=== PATIENT | female | born 1990 | race African-American/Black ===

== ENCOUNTER 2017-04-15 15:05 | Emergency (ER) | payer OTHER ==
[~2017-04-15] VITALS: Ht 157.5 cm; Wt 81.6 kg
--- NOTE | 2017-04-15 15:52 | Emergency Room Report ---
History of Present Illness General Chief Complaint: Abdominal Pain Source: Patient Present Illness HPI 26-year-old female presents emergency department complaining of lower abdominal cramping in addition to new onset vaginal bleeding since this a.m. Patient states she is approximately 10 weeks and she has ultrasound scheduled with her NETWORK DEVELOPMENT COORDINATOR on the . Patient is with one prior vaginal and one prior . Patient states her pain is ranges form 5/10 in severity up to 8/10 in severity, she reports dark red blood, approximately 3 absorbency pads worth of blood. Patient denies trauma or fall. Denies nausea, vomiting, fevers , chills. Patient denies abdominal tenderness. Pt denies abdominal tenderness, dysuria, or frequency. pt. states it is hard for her to tell if she has hematuria. Denies CP, Palpitations, LOC, AMS, dizziness, Changes in Vision, Sensation, paresthesias, or a sudden severe headache. Allergies: Coded Allergies: No Known Allergies (Unverified , 04/15/17) Patient History Past Medical History: see triage record Past Surgical History: none Pertinent Family History: none Last Menstrual Period: 02/09/17 Now: Yes : 3 Para: 2 Reviewed Nursing Documentation: PMH: Agreed, PSxH: Agreed Nursing Documentation-PMH Past Medical History: No Stated History Review of Systems All Other Systems: negative except mentioned in HPI Physical Exam Vital Signs Date Time Temp Pulse Resp B/P Pulse Ox O2 Delivery O2 Flow Rate FiO2 04/15/17 15:11 98.2 77 15 97/67 99 Room Air Sp02 EP Interpretation: reviewed, normal General Appearance: no apparent distress, alert, GCS 15, non-toxic Head: normocephalic, atraumatic Eyes: bilateral eye PERRL, bilateral eye normal inspection ENT: hearing grossly normal, normal pharynx, no angioedema, normal voice Neck: full range of motion, supple/symm/no masses Respiratory: lungs clear, normal breath sounds, speaking full sentences Cardiovascular #1: regular rate, rhythm, no edema Gastrointestinal: normal bowel sounds, non tender, soft, no guarding, no rebound, other - no appreciable abdominal TTP, normal bowel sounds, non- distended, no palpable fundus. Rectal: deferred Genitourinary: normal inspection, no CVA tenderness, other - os is open with thick debris/ discharge suspicious for POC, mild amount of dark red blood in the vaginal vault, no CMT. no adnexal TTP Musculoskeletal: back normal, gait/station normal, normal range of motion, non- tender Neurologic: alert, oriented x3, responsive, motor strength/tone normal, sensory intact, speech normal Psychiatric: judgement/insight normal, memory normal, mood/affect normal Skin: normal color, no rash, warm/dry, well hydrated Lymphatic: no adenopathy Medical Decision Making PA Attestation Dr. Hollins is my supervising Physician whom patient management has been discussed with. Diagnostic Impression: Primary Impression: Miscarriage ER Course 26-year-old female presents emergency department complaining of lower abdominal cramping in addition to new onset vaginal bleeding since this a.m. Patient states she is approximately 10 weeks and she has ultrasound scheduled with her NETWORK DEVELOPMENT COORDINATOR on the . Patient is with one prior vaginal and one prior . Patient states her pain is ranges form 5/10 in severity up to 8/10 in severity, she reports dark red blood, approximately 3 absorbency pads worth of blood. Patient denies trauma or fall. Denies nausea, vomiting, fevers , chills. Patient denies abdominal tenderness. Ddx considered but are not limited to: Fibroid, ectopic , Fibroid, Spontaneous , Vital signs: are WNL, pt. is afebrile H&PE are most consistent with: Spontaneous / actively miscarrying ORDERS: -UA: rbc's, bacteria, and epithelial cells, no wbc's or leuks- consistent with contamination rather than infection, blood consistent with vaginal bleeding on PE. -Serum Hcg Quant: 2,659 - Blood/RH type and screen- O POSITIVE -Pelvic US complete- debris in the uterus, no IUP, no cysts, or adnexal masses per preliminary ED INTERVENTIONS: -Motrin PO ( given after labs and US were obtained) Discussed with patient that she needs to followup with her NETWORK DEVELOPMENT COORDINATOR within 3 days have repeat ultrasound performed to ensure that there are no retained products. Discussed with patient to return to the emergency department with worsening of symptoms or onset of fevers. DISCHARGE: At this time pt. is stable for d/c to home. Will provide printed patient care instructions, and any necessary prescriptions. Care plan and follow up instructions have been discussed with the patient prior to discharge. Labs Test 04/15/17 15:29 04/15/17 15:38 Urine Color Red Urine Appearance Cloudy Urine pH 8 (4.5-8.0) Urine Specific [place] 1.015 (1.005-1.035) Urine Protein 4+ (NEGATIVE) Urine Glucose (UA) Negative (NEGATIVE) Urine Ketones Negative (NEGATIVE) Urine Occult Blood 5+ (NEGATIVE) Urine Nitrite Negative (NEGATIVE) Urine Bilirubin Negative (NEGATIVE) Urine Urobilinogen Normal MG/DL (0.0-1.0) Urine Leukocyte Esterase Negative (NEGATIVE) Urine RBC Tntc /HPF (0 - 2) Urine WBC 2-4 /HPF (0 - 2) Urine Squamous Epithelial Cells Few /LPF (NONE/OCC) Urine Bacteria Moderate /HPF (NONE) Human Chorionic Gonadotropin, Quant 2659 mIU/mL Last Vital Signs Date Time Temp Pulse Resp B/P Pulse Ox O2 Delivery O2 Flow Rate FiO2 04/15/17 15:11 98.2 77 15 97/67 99 Room Air Disposition: HOME, SELF-CARE Condition: Stable Scripts Ibuprofen* (MOTRIN*) 600 Mg Tablet 600 MG ORAL THREE TIMES A DAY, #30 TAB 0 Refills Prov: Genet Spencer 04/15/17 Patient Instructions: Miscarriage, [id number] Additional Instructions: Take medications as directed. Follow up with OBGYN Within 3 days Return sooner to ED if new symptoms occur, or current symptoms become worse. - Please note that this Emergency Department Report was dictated using [employer]air[employer] extrusion operator technology software, occasionally this can lead to erroneous entry secondary to interpretation by the dictation equipment. Genet Spencer April 15, 2017 15:52
[2017-04-15 16:11] LABS: APPEARANCE,URINE CLOUDY; KETONES,URINE NEGATIVE (NEGATIVE); LEUKOCYTE ESTERASE ,URINE NEGATIVE (NEGATIVE); NITRITE,URINE NEGATIVE (NEGATIVE); PH,URINE 8 (4.5-8.0); PROTEIN,URINE 4+ (NEGATIVE); UROBILINOGEN,URINE NORMAL MG/DL (0.0-1.0)
[2017-04-15 16:28] LABS: BACTERIA,URINE MODERATE /HPF; RBC,URINE TNTC /HPF (0 - 2); SQUAMOUS EPITHELIAL CELL,UR FEW /LPF (NONE/OCC)
[2017-04-15] MEDS ORDERED: IBUPROFEN600 MG ORAL (18:57)
[2017-04-15 19:01] VITALS: BP 90/57
--- NOTE | 2017-04-16 10:01 | Diagnostic Imaging Report ---
Indication: Pelvic pain, vaginal bleeding started today. Positive test Technique: Transabdominal and transvaginal images Comparison: None Findings: Uterus measures 10.5 cm length by 5.8 cm AP. Endometrium measures 7 mm thick. No intrauterine gestational sac is demonstrated. A small amount of mixed echogenicity debris and bright echoes are seen within the endometrium. No myometrial abnormality. Right ovary measures 3.2 cm length. Left ovary measures 3.3 cm length. Right ovary demonstrates a dominant follicle or corpus luteum. Normal Doppler flow seen in both ovaries. No free cul-de-sac fluid Impression: No intrauterine demonstrated. Differential considerations include spontaneous , ectopic . Very early and therefore not visualized yet also possible, and less likely given the relatively high beta-hCG level. Debris within the endometrial cavity. If the above findings represent spontaneous , then retained products of conception are not excludable. Followup imaging should be considered if clinically indicated
== END 2017-04-15 19:20 | disposition home or self-care (01) ==
LOC: EMR 15:35
DX: O03.9 Complete or unspecified spontaneous abortion without complication (principal)
CPT/HCPCS: 36415; 76856; 81003; 84702; 86850; 86900; 86901; 87086; 99284

== ENCOUNTER 2019-02-14 15:33 | Emergency (ER) | payer MEDICAID, OTHER ==
[~2019-02-14] VITALS: Ht 162.6 cm; Wt 81.6 kg
[~2019-02-14 15:33] MED LIST: IBUPROFEN600 MG ORAL
--- NOTE | 2019-02-14 17:00 | NUR ---
ED Nurse Note:cratches provided for d/c home
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
[2019-02-14] MEDS ORDERED: IBUPROFEN600 MG ORAL (17:05)
[2019-02-14 17:21] VITALS: BP 100/62
--- NOTE | 2019-02-14 17:23 | NUR ---
ER DISCHARGE NOTE:pt. had ice bag placed on right ankle, antonietta wrap was applied Patient is cleared to be discharged per ERMD, pt is aox4, on room air, with stable vital signs. pt was given dc and prescription instructions, pt was able to verbalize understanding, pt is able to ambulate with steady gait. pt took all belongings.
--- NOTE | 2019-02-15 11:17 | Diagnostic Imaging Report ---
Indication: Right ankle pain Technique: 3 views of the right ankle Comparison: none Findings: Bony alignment is normal. No acute fractures. No dislocations. Joint spaces are preserved Impression: Negative
--- NOTE | 2019-02-15 11:38 | Diagnostic Imaging Report ---
Indication: Right foot pain Technique: 3 views right foot Comparison: none Findings: There is mild hammertoe deformity of the second through fifth digits. No acute fractures. No dislocations. The joint spaces are preserved. Impression: Negative
== END 2019-02-14 17:25 | disposition home or self-care (01) ==
LOC: EMR 16:10
DX: S93.491A Sprain of other ligament of right ankle, initial encounter (principal); W01.0XXA Fall on same level from slipping, tripping and stumbling without subsequent striking against object, initial encounter; Y92.9 Unspecified place or not applicable
CPT/HCPCS: 99283

== ENCOUNTER 2019-10-11 22:45 | Emergency (ER) | payer MEDICAID ==
[~2019-10-11] VITALS: Ht 154.9 cm; Wt 81.6 kg
[2019-10-11 23:01] VITALS: BP 105/73
[2019-10-11] MEDS ORDERED: LIDODERM700 M1 TOPIC (23:02)
[2019-10-11] MEDS ORDERED: IBUPROFEN600 MG ORAL (23:02)
--- NOTE | 2019-10-11 23:03 | NUR ---
ED Nurse Note: Patient walked in to ER c/o lower back pain since yestrday. AAO x4, VSS at this time, skin is warm to touch.
--- NOTE | 2019-10-11 23:05 | Emergency Room Report ---
History of Present Illness General Chief Complaint: Back Pain-No Injury Source: Patient Present Illness HPI Disclaimer: Please note that this report is being documented using DRAGON technology. This can lead to erroneous entry secondary to incorrect interpretation by the dictating instrument. HPI: 29-year-old female with no medical history presents for evaluation of back pain. Symptoms began last night. 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 She noted a sharp twinge in her back but denied any lower extremity weakness, changes in sensation, saddle anesthesia, urinary retention, fecal incontinence or fever. She does not inject medications or IV drugs. No prior history of back injury. She is ablating without difficulty, steady gait. No other symptoms at this time. She is here requesting an evaluation to make sure she can return to work. No specific complaints at this time. Pain is currently a 6/10 and nonradiating. Localized over the lower back. PMH: Denies PSH: Denies Allergies: Denies Social Hx: Denies drug or alcohol abuse Allergies: Coded Allergies: No Known Allergies (Unverified , 04/15/17) Patient History Now: No Nursing Documentation-PMH Past Medical History: No Stated History Review of Systems All Other Systems: negative except mentioned in HPI Physical Exam Vital Signs Date Time Temp Pulse Resp B/P (MAP) Pulse Ox O2 Delivery O2 Flow Rate FiO2 10/11/19 22:49 98.1 64 18 105/73 (84) 99 Room Air General: Awake and alert, no acute distress HEENT: NC/AT. EOMI. Resp: Normal work of breathing Skin: Intact. No abrasions, laceration or rash over the exposed skin MSK: Normal tone and bulk. Moving all extremities. No obvious deformity. Ambulate with a steady gait. Neuro: Awake and alert. Mentating appropriately. Sensation is intact over the dermatomes of the lower extremity's bilaterally. No saddle anesthesia. Strength is 5/5 at the hips, knees and ankles bilaterally Back/Spine: No midline tenderness in the cervical, thoracic or spine. Very mild tenderness along the midline without step-off or deformity in the lumbosacral region. No paraspinal tenderness. No masses. Medical Decision Making Diagnostic Impression: Primary Impression: Lower back pain ER Course 29-year-old female presents for evaluation of atraumatic lower back pain of one days duration. She is well-appearing, stable vital signs, mild tenderness in the midline but no evidence of deformity or neurologic compromise. She has no red flags syndromes to suggest cauda equina syndrome or spinal epidural abscess. Do not see indication for emergent imaging at this time. Likely, this is a ligamentous injury and will be treated with NSAIDs and lidocaine patch. She will be put on light duty for 1 day and then can return as her symptoms improve. She will be following up with her PMD if symptoms continue. We discussed reasons to return to the emergency department. She understands and agrees with this treatment plan. Last Vital Signs Date Time Temp Pulse Resp B/P (MAP) Pulse Ox O2 Delivery O2 Flow Rate FiO2 10/11/19 23:01 98.1 18 105/73 99 Room Air 10/11/19 22:49 64 Disposition: HOME, SELF-CARE Condition: Stable Scripts Lidocaine Patch* (Lidoderm Patch*) 1 Each Adh..patch 1 PATCH TOPIC DAILY, #7 PATCH 0 Refills Patch(es) may remain in place for up to 12 hours in any 24-hour period. Prov: Ruben Grace MD 10/11/19 Ibuprofen* (MOTRIN*) 600 Mg Tablet 600 MG ORAL THREE TIMES A DAY, #30 TAB 0 Refills Prov: Ruben Grace MD 10/11/19 Referrals: [facility] Open 24 hour /7 days a week by Appointment Only [address] [facility] [address] [facility] [address] Departure Forms: Return to Work Return to Work Date: Oct 12, 2019 Work Restrictions: No Heavy Lifting Return to Full Activity: Oct 13, 2019 Patient Instructions: Lumbosacral Strain Additional Instructions: Follow-up with your doctor to discuss back pain. Do not lift anything heavy for the next 24 to 48 hours until your symptoms are improved. He may return to full duty when you feel able. Return to the emergency department if you have any weakness, loss of feeling, difficulty passing urine, lose control of your bowels, have high fevers or any other sudden changes in your health. Ruben Grace MD Oct 11, 2019 23:05
[2019-10-11 23:08] VITALS: BP 105/73
--- NOTE | 2019-10-11 23:09 | NUR ---
ED Nurse Note: Pt cleared by health care Provider for discharge. DC instructions/prescription was given and explained to pt and verbalized understanding of teachings. All medical deviecs such as ID band removed. Pt is AAO x4, ambulatory and left with all personal belongings.
== END 2019-10-11 23:08 | disposition home or self-care (01) ==
LOC: EMR 23:04
DX: M54.5 Low back pain (principal)
CPT/HCPCS: 99282